=== PATIENT | male | born 1940 | race Caucasian/White ===

== ENCOUNTER → 2016-06-20 14:30 | Outpatient (CLI) | payer MEDICARE, OTHER ==
[2016-03-10 13:56] VITALS: BMI 30.6
[~2016-06-20 14:30] MED LIST: BAYER CHEWABLE81 MG PO; BENADRYL25 MG PO; CYMBALTA60 MG PO; FLAGYL250 MG PO; FLUTICASONE PRO16 GM NASAL; FUROSEMIDE40 MG PO; GLUCOPHAGE1000 MG PO; HYDRALAZINE HC100 MG PO; HYDRALAZINE HCL25 MG PO; HYDROCODONE-APA1 TAB PO; ISOSORBIDE MONO30 M1 PO; ISOSORBIDE MONO60 M1 PO; JANUVIA100 MG PO; JANUVIA50 MG PO; K-TAB10 MEQ PO; LASIX20 MG PO; LEVAQUIN500 MG PO; MIRALAX17 GM PO; NITROSTAT0.4 MG SL; NORVASC10 MG PO; PERSERVISION PO; PLAVIX75 MG PO; PRESERVISION AR1 CAP PO; PREVACID30 MG PO; PROAIR HFA8.5 GM INH; SYMBICORT 16010.2 GM INH; ZESTRIL20 MG PO; ZETIA10 MG PO; ZOFRAN4 MG PO; [UNRECOGNIZED DRUG - REMARK] PO
[2016-06-20 15:28] LABS: BASOPHILS 0.8 % (0.0-2.0); EOSINOPHILS 7.2 % (0-7); HEMATOCRIT 24.4 % (42.0-54.0); HEMOGLOBIN 7.6 g/dL (13.5-17.5); IMMATURE GRANULOCYTES 0.2 % (0-5); LYMPHOCYTES 16.5 % (15-50); MCH 29.3 pg (26.0-34.0); MCHC 31.1 g/dL (31.0-37.0); MCV 94.2 fL (80.0-100.0); MEAN PLATELET VOLUME 10.7 fL (7.4-10.4); MONOCYTES 10.4 % (2-11); NEUTROPHILS 64.9 % (40-80); RBC 2.59 10x6/uL (4.20-6.10); WBC 4.7 10x3/uL (4.8-10.8)
[2016-06-20 15:34] LABS: PLATELET COUNT 342 10x3/uL (130-400)
[2016-06-20 15:36] LABS: ANION GAP 17.3 mmol/L (8-16); CALCIUM 8.5 mg/dL (8.5-10.1); CARBON DIOXIDE 23.6 mmol/L (21.0-32.0); CREATININE - SERUM 5.3 mg/dL (0.6-1.3); POTASSIUM - SERUM 4.9 mmol/L (3.5-5.1)
[2016-06-20 15:45] LABS: HEMOGLOBIN A1C 4.5 % (4.8-6.0)
== END | disposition home or self-care (01) ==
LOC: D.LABREF 14:30
PROVIDERS: Internal Medicine Nephrology
DX: E11.22 Type 2 diabetes mellitus with diabetic chronic kidney disease (principal); N18.9 Chronic kidney disease, unspecified; D64.9 Anemia, unspecified; D69.6 Thrombocytopenia, unspecified

== ENCOUNTER 2016-07-23 08:00 | Outpatient (CLI) | payer MEDICARE, OTHER ==
[2016-03-10 13:56] VITALS: BMI 30.6
[~2016-07-23 08:00] MED LIST changes: -BENADRYL25 MG PO; -FUROSEMIDE40 MG PO; -HYDRALAZINE HC100 MG PO; -ISOSORBIDE MONO60 M1 PO; -JANUVIA100 MG PO; -NITROSTAT0.4 MG SL; -PERSERVISION PO; -PRESERVISION AR1 CAP PO
[2016-07-23 14:35] LABS: BASOPHILS 1.5 % (0.0-2.0); HEMATOCRIT 28.1 % (42.0-54.0); HEMOGLOBIN 8.7 g/dL (13.5-17.5); IMMATURE GRANULOCYTES 0.2 % (0-5); MCH 27.8 pg (26.0-34.0); MCV 89.8 fL (80.0-100.0); MEAN PLATELET VOLUME 9.2 fL (7.4-10.4); MONOCYTES 8.4 % (2-11); NEUTROPHILS 72.9 % (40-80); RBC 3.13 10x6/uL (4.20-6.10); RDW 15.7 % (11.5-14.5); WBC 5.5 10x3/uL (4.8-10.8)
[2016-07-23 14:41] LABS: PLATELET COUNT 178 10x3/uL (130-400)
[2016-07-23 14:58] LABS: APTT 31.7 SECONDS (22.8-39.4); INR 1.26 (0.85-1.17); PROTIME 15.7 SECONDS (11.6-15.0)
[2016-07-23 14:59] LABS: CARBON DIOXIDE 23.6 mmol/L (21.0-32.0); CREATININE - SERUM 5.2 mg/dL (0.6-1.3); POTASSIUM - SERUM 4.6 mmol/L (3.5-5.1)
[2016-07-23] MEDS ORDERED: PRESERVISION AR1 CAP PO (16:26)
[2016-07-23] MEDS ORDERED: PREVACID30 MG PO (16:27)
[2016-07-23] MEDS ORDERED: FUROSEMIDE40 MG PO (16:28)
[2016-07-23] MEDS ORDERED: JANUVIA100 MG PO (16:29)
[2016-07-23] MEDS ORDERED: SYMBICORT 16010.2 GM INH (16:30)
[2016-07-23] MEDS ORDERED: NITROSTAT0.4 MG SL (16:31)
[2016-07-23] MEDS ORDERED: BENADRYL25 MG PO (16:33)
[2016-07-23] MEDS ORDERED: MIRALAX17 GM PO (16:33)
[2016-08-08] MEDS ORDERED: ISOSORBIDE MONO60 M1 PO (07:45)
[2016-08-08] MEDS ORDERED: PERSERVISION PO (07:46)
[2016-08-08] MEDS ORDERED: HYDRALAZINE HC100 MG PO (07:49)
== END 2016-07-23 23:59 | disposition home or self-care (01) ==
LOC: D.PAN 08:00 → D.OPS 07-25 07:30 → EDSTATUS 07-25 07:30
PROVIDERS: Internal Medicine Nephrology
DX: N18.6 End stage renal disease (principal)

== ENCOUNTER → 2016-08-04 15:20 | Outpatient (CLI) | payer MEDICARE, OTHER ==
[2016-03-10 13:56] VITALS: BMI 30.6
[~2016-08-04 15:20] MED LIST changes: +BENADRYL25 MG PO; +FUROSEMIDE40 MG PO; +HYDRALAZINE HC100 MG PO; +ISOSORBIDE MONO60 M1 PO; +JANUVIA100 MG PO; +NITROSTAT0.4 MG SL; +PERSERVISION PO; +PRESERVISION AR1 CAP PO
[2016-08-04 18:40] LABS: BASOPHILS 2.4 % (0.0-2.0); EOSINOPHILS 2.4 % (0-7); HEMATOCRIT 26.3 % (42.0-54.0); HEMOGLOBIN 8.2 g/dL (13.5-17.5); IMMATURE GRANULOCYTES 0.2 % (0-5); LYMPHOCYTES 23.2 % (15-50); MCH 27.5 pg (26.0-34.0); MCHC 31.2 g/dL (31.0-37.0); MCV 88.3 fL (80.0-100.0); MEAN PLATELET VOLUME 10.8 fL (7.4-10.4); MONOCYTES 9.6 % (2-11); NEUTROPHILS 62.2 % (40-80); RBC 2.98 10x6/uL (4.20-6.10); RDW 16.3 % (11.5-14.5); WBC 4.2 10x3/uL (4.8-10.8)
[2016-08-04 18:44] LABS: PLATELET COUNT 227 10x3/uL (130-400)
[2016-08-04 18:59] LABS: CALCIUM 8.4 mg/dL (8.5-10.1); CARBON DIOXIDE 22.1 mmol/L (21.0-32.0); CREATININE - SERUM 5.8 mg/dL (0.6-1.3); POTASSIUM - SERUM 4.1 mmol/L (3.5-5.1)
== END | disposition home or self-care (01) ==
LOC: D.LABREF 15:20
PROVIDERS: Internal Medicine Nephrology
DX: N18.9 Chronic kidney disease, unspecified (principal); E11.9 Type 2 diabetes mellitus without complications; D64.9 Anemia, unspecified

== ENCOUNTER 2016-08-08 09:44 | Day surgery (SDC) | payer MEDICARE, OTHER ==
[2016-08-07 14:14] LABS: BASOPHILS 1.2 % (0.0-2.0); HEMATOCRIT 26.5 % (42.0-54.0); HEMOGLOBIN 8.3 g/dL (13.5-17.5); IMMATURE GRANULOCYTES 0.5 % (0-5); LYMPHOCYTES 17.8 % (15-50); MCH 27.5 pg (26.0-34.0); MCHC 31.3 g/dL (31.0-37.0); MCV 87.7 fL (80.0-100.0); MEAN PLATELET VOLUME 9.9 fL (7.4-10.4); MONOCYTES 10.3 % (2-11); NEUTROPHILS 68.2 % (40-80); PLATELET COUNT 198 10x3/uL (130-400); RBC 3.02 10x6/uL (4.20-6.10); RDW 16.5 % (11.5-14.5); WBC 4.1 10x3/uL (4.8-10.8)
[2016-08-07 14:26] LABS: INR 1.25 (0.85-1.17); PROTIME 15.6 SECONDS (11.6-15.0)
[2016-08-07 14:28] LABS: ANION GAP 16.5 mmol/L (8-16); CALCIUM 8.9 mg/dL (8.5-10.1); CARBON DIOXIDE 23.4 mmol/L (21.0-32.0); CREATININE - SERUM 6.2 mg/dL (0.6-1.3); POTASSIUM - SERUM 4.9 mmol/L (3.5-5.1)
[~2016-08-08] VITALS: Ht 160 cm; Wt 74.8 kg
[2016-08-08 08:06] VITALS: Ht 160 cm; Wt 74.8 kg
--- NOTE | 2016-08-08 13:53 | NUR ---
RETURNED FROM BATHROOM, GAIT BETTER. STATES SHE WANTS HIM TO WAKE UP MORE. STATES "HE'S TOO UNSTEADY." VITAL SIGNS WNL. OXYGEN SAT ON ROOM AIR IS THE SAME PREOP SATURATION. INSTRUCTED ON GIVING HIM HIS HOME MEDICINES THAT HE HAS NOT HAD TODAY USUAL, VOICED UNDERSTANDING. DRESSED AND LAYING IN THE BED.
--- NOTE | 2016-08-08 14:05 | NUR ---
WATCHING TV. STATES FEELS HE WILL BE READY TO LEAVE AT 3. STATES HE WANTS TO REST. INSTRUCTED TO GIVE HIS LASIX THAT HE HAS NOT HAD TODAY WHEN THEY GO HOME, VOICED UNDERSTANDING. INSTRUCTED TO CALL WHEN READY FOR A WHEELCHAIR.
--- NOTE | 2016-08-08 14:31 | NUR ---
SITTING ON SIDE OF BED SMILING. STATES IS READY TO GO HOME. DISCHARGED VIA WC.
--- NOTE | 2016-08-10 07:35 | OP ---
PATIENT NAME: JUSTO BERNAL MEDICAL RECORD: [id number] :38 LOCATION:D.OPS ADMISSION DATE: SURGEON: PAYAL WHITE MD DATE OF OPERATION: 08/08/2016 Outpatient Operative Note PREOPERATIVE DIAGNOSIS: Chronic kidney disease V. POSTOPERATIVE DIAGNOSIS: Chronic kidney disease V. OPERATION PERFORMED: Creation of a left brachiocephalic AV fistula, David type. SURGEON: Payal White MD ANESTHESIA: Regional nerve block and IV sedation per MAINFRAME SYSTEMS ADMINISTRATOR. REFERRING PHYSICIAN: Dr. Marroquin. MAPPING INTERVENTIONALIST: Dr. Salmon. PREOPERATIVE NOTE: Mr. Bernal is a 75-year-old white male patient with chronic kidney disease, who was referred for establishment of dialysis access in anticipation of him requiring dialysis fairly soon. He is brought to the operating room with plans to create a left arm brachiocephalic AV fistula. Under block and IV sedation and monitoring per MAINFRAME SYSTEMS ADMINISTRATOR, the patient is prepped and draped in a sterile manner. He was examined first with a proximal venous tourniquet and with topical nitroglycerin. Ultrasound demonstrated a satisfactory cephalic vein and as anticipated, we went on to create the brachiocephalic fistula. A transverse antecubital incision was made. The vessels were exposed and controlled with Silastic loops. The vein was ligated distally with 2-0 Vicryl. It was flushed with heparinized saline, shortened and beveled and then an atraumatic clamp applied. The artery was opened and flushed with heparinized saline proximally and distally and a veined artery, end-to-side anastomosis was then performed with running 7-0 Prolene. After that was completed, Evicel fibrin glue was applied and then the loops and clamps were released, excellent flow was immediately established in the fistula and the suture line was hemostatic. The wound was irrigated with Ancef and gentamicin solution, it was infiltrated with 0.25% Marcaine without epinephrine. It was closed with interrupted inverted 3-0 Vicryl and running intracuticular 4-0 Monocryl and Dermabond glue, was dressed with Maxorb Ag, Tegaderm and Cavilon skin prep. The patient had several skin tears which had occurred during the prep. These were likewise dressed with Tegaderms. The patient was then taken to the recovery room with good fistula function. PLAN: For the patient to go home from the outpatient department today, continue his home diet and medications. I believe Tylenol should suffice for his pain medication, perhaps with the use of topical ice off and on as needed. I will plan to see him back in my office in 2 weeks and he can leave the original operative dressing intact until that time. There was no blood loss during the procedure. All sponges, instruments and needles were accounted for. No drain OPERATIVE REPORT [id number] JUSTO BERNAL was used and no surgical specimen was submitted for histopathology. TRANSINT:[id number] Voice Confirmation ID: [id number] DOCUMENT ID: [id number] PAYAL WHITE MD at 0735 CC: INA MARROQUIN MD and DOT SALMON MD [id number] DICTATION DATE: 08/08/16 1211 ANTENNA DESIGN ENGINEER: 08/08/16 1856 [facility] 08/08/16 [facility] [address] [place] [address]
== END 2016-08-08 14:31 | disposition home or self-care (01) ==
LOC: D.OPS 09:44
PROVIDERS: Surgery
DX: I13.0 Hypertensive heart and chronic kidney disease with heart failure and stage 1 through stage 4 chronic kidney disease, or unspecified chronic kidney disease (principal); E11.22 Type 2 diabetes mellitus with diabetic chronic kidney disease; N18.4 Chronic kidney disease, stage 4 (severe); I50.9 Heart failure, unspecified; Z99.2 Dependence on renal dialysis; J44.9 Chronic obstructive pulmonary disease, unspecified; Z95.5 Presence of coronary angioplasty implant and graft; K21.9 Gastro-esophageal reflux disease without esophagitis; J45.909 Unspecified asthma, uncomplicated; I25.10 Atherosclerotic heart disease of native coronary artery without angina pectoris; Z87.891 Personal history of nicotine dependence

== ENCOUNTER → 2016-08-29 11:43 | Outpatient (CLI) | payer MEDICARE, OTHER ==
[2016-08-08 08:06] VITALS: BMI 29.2
[2016-08-29 13:46] LABS: BASOPHILS 1.4 % (0-2); EOSINOPHILS 5.2 % (0-7); HEMATOCRIT 26.3 % (42.0-54.0); HEMOGLOBIN 8.3 g/dL (13.5-17.5); IMMATURE GRANULOCYTES 0.2 % (0-5); LYMPHOCYTES 12.4 % (15-50); MCH 27.5 pg (26.0-34.0); MCHC 31.6 g/dL (31.0-37.0); MCV 87.1 fL (80.0-100.0); MEAN PLATELET VOLUME 10.4 fL (7.4-10.4); MONOCYTES 8.3 % (2-11); NEUTROPHILS 72.5 % (40-80); RBC 3.02 10x6/uL (4.20-6.10); RDW 17.1 % (11.5-14.5); WBC 4.8 10x3/uL (4.8-10.8)
[2016-08-29 13:50] LABS: PLATELET COUNT 247 10x3/uL (130-400)
== END | disposition home or self-care (01) ==
LOC: D.LABREF 11:43
PROVIDERS: Legal Medicine
DX: N18.9 Chronic kidney disease, unspecified (principal)

== ENCOUNTER → 2016-09-02 14:18 | Outpatient (CLI) | payer MEDICARE, OTHER ==
[2016-08-08 08:06] VITALS: BMI 29.2
== END | disposition home or self-care (01) ==
LOC: D.RAD 14:18
DX: N18.5 Chronic kidney disease, stage 5 (principal)

== ENCOUNTER → 2016-09-26 17:25 | Outpatient (CLI) | payer MEDICARE, OTHER ==
[2016-08-08 08:06] VITALS: BMI 29.2
[2016-09-26 20:21] LABS: HEMOGLOBIN A1C 4.9 % (4.8-6.0)
== END | disposition home or self-care (01) ==
LOC: D.LABREF 17:25
PROVIDERS: Internal Medicine Nephrology
DX: E11.9 Type 2 diabetes mellitus without complications (principal)

== ENCOUNTER 2016-10-06 11:30 | Outpatient (CLI) | payer MEDICARE, OTHER ==
[~2016-10-06] VITALS: Ht 160 cm; Wt 66.4 kg
[2016-10-06] MEDS ORDERED: ADVAIR 500/501 DISK INH (12:37)
[2016-10-06] MEDS ORDERED: RESTORIL15 MG PO (12:43)
[2016-10-06] MEDS ORDERED: MELATONIN5 MG PO (12:44)
[2016-10-06] MEDS ORDERED: ZOFRAN4 MG PO (12:44)
[2016-10-06] MEDS ORDERED: TUMS500 MG PO (12:45)
[2016-10-06 14:02] VITALS: BP 163/72; Ht 160 cm; Wt 66.4 kg
--- NOTE | 2016-10-06 16:26 | NUR ---
1550 BP ELEVATED, Nya JENNINGS APN NOTIFIED, ORDERS RECEIVED, AWAITING MEDICATION FROM PHARMACY.
--- NOTE | 2016-10-06 17:25 | NUR ---
1700-IV D/C AFTER LINE FLUSHED. 1715-DISCHARGE INSTRUCTIONS REVIEWED WITH PATIENT AND . D/C HOME VIA W/C TO PRIVATE AUTO.
== END 2016-10-06 17:15 | disposition home or self-care (01) ==
LOC: D.OPS 11:30
DX: D64.9 Anemia, unspecified (principal)

== ENCOUNTER → 2016-12-29 12:27 | Outpatient (CLI) | payer MEDICARE, OTHER ==
[2016-10-06 14:02] VITALS: BMI 25.9
[~2016-12-29 12:27] MED LIST changes: +ADVAIR 500/501 DISK INH; +MELATONIN5 MG PO; +RESTORIL15 MG PO; +TUMS500 MG PO
[2016-12-29 13:08] LABS: HEMOGLOBIN A1C 5.7 % (4.8-6.0)
== END | disposition home or self-care (01) ==
LOC: D.LABREF 12:27
PROVIDERS: Legal Medicine
DX: E11.9 Type 2 diabetes mellitus without complications (principal)

== ENCOUNTER 2017-12-25 16:56 | Inpatient (IN) | payer MEDICARE, OTHER ==
[~2017-12-25] VITALS: Ht 160 cm; Wt 77.1 kg
--- NOTE | ~2017-12-25 | EC ---
PATIENT:JUSTO BERNAL DATE OF SERVICE: 12/25/17 SEX: M MEDICAL RECORD: [id number] DATE OF : 38 LOCATION:D.M2 D.210 AGE OF PATIENT: 77 ADMISSION DATE: 12/25/17 REFERRING PHYSICIAN: INTERPRETING PHYSICIAN: ARUNA ELISE MD ECHOCARDIOGRAM REPORT ECHO CHARGES 4 ECHO COMPLETE Date: 12/26 CLINICAL DIAGNOSIS: CARDIOMEGALLY, PERICARDIAL EFFUSION ECHOCARDIOGRAPHIC MEASUREMENTS (adult normal given) AC root (d.<3.7cm) 3.2 cm LV Septum d (<1.2 cm> 1.8 cm Valve Excursion 0.9 cm LV Septum (systole) 1.9 cm Left Atria (s.<4.0cm> 3.2 cm LVPW d(<1.2cm) 1.1 cm RV (d.<2.3cm) 3.4 cm LVPW (sytole) 1.2 cm LV diastole(<5.6CM) 5.3 cm MV E-F(>70mm/sec) cm LV systole 4.6 cm LVOT Diameter 1.6 cm MV exc.(>10mm) cm Est.ejection fraction (50-75%) % DOPPLER: LVIT cm/sec A 78 cm/sec E 113 cm/sec LA cm/sec RVSP 31.7 mmHg LVOT 140 cm/sec AOP1/2T m/s Asc. Ao 204 cm/sec RVOT 76 cm/sec RA cm/sec PA 88 cm/sec AV Gradient Peak 16.7 mmHg AV Mean 8.7 mmHg AV Area 1.7 cm MV Gradient Peak 7.6 mmHg MV Mean 3.3 mmHg MV Area cm COMMENTS: Sewer Bricklayer: Danny ELISE Salvage Engineer: Yudy Elise TAPE# PACS Pericardial Effusion Y DATE OF SERVICE: PROCEDURE: Transthoracic echocardiogram. FINDINGS: 1. Left ventricle shows concentric left ventricular hypertrophy. The ejection fraction is 50% to 55%. There is no obvious regional wall motion abnormalities. 2. The left atrium appears to be normal size. 3. The aortic valve has trace to mild aortic insufficiency, otherwise structurally normal. ECHOCARDIOGRAM REPORT [id number] JUSTO BERNAL 4. The mitral valve has trace to mild mitral regurgitation, it looks structurally normal. 5. The tricuspid valve has mild tricuspid regurgitation. RVSP is 31 mmHg. 6. The right ventricle is mildly dilated with right ventricular hypertrophy. 7. The right atrium is mildly dilated. 8. There is a trace pericardial effusion without tamponade physiology. 9. The pulmonic valve is grossly normal. CONCLUSIONS: The patient has evidence of left ventricular hypertrophy, normal to mildly depressed LV systolic function. TRANSINT:[id number] Voice Confirmation ID: [id number] DOCUMENT ID: [id number] ARUNA ELISE MD at 0749 CC: [id number] DICTATION DATE: 12/27/172222 PIPE TESTING TECHNICIAN: 12/28/17 0523 DIS IN 12/29/17 [facility] [address] [place] [address]
[2017-12-25] MEDS ORDERED: CELEXA10 MG PO (17:27)
[2017-12-25] MEDS ORDERED: NEPHRO-VITE RX1 TAB PO (17:29)
[2017-12-25] MEDS ORDERED: ZOCOR20 MG PO (17:31)
[2017-12-25] MEDS ORDERED: METOPROLOL TART50 MG PO (17:31)
[2017-12-25] MEDS ORDERED: VITAMIN D31000 UNIT PO (17:32)
[2017-12-25 18:16] LABS: BASOPHILS 0.3 % (0-2); EOSINOPHILS 0.5 % (0-7); HEMATOCRIT 36.9 % (42.0-54.0); HEMOGLOBIN 12.6 g/dL (13.5-17.5); IMMATURE GRANULOCYTES 0.2 % (0-5); LYMPHOCYTES 7.1 % (15-50); MCH 30.7 pg (26.0-34.0); MCHC 34.1 g/dL (31.0-37.0); MCV 89.8 fL (80.0-100.0); MEAN PLATELET VOLUME 11.1 fL (7.4-10.4); MONOCYTES 7.2 % (2-11); NEUTROPHILS 84.7 % (40-80); PLATELET COUNT 230 10x3/uL (130-400); RBC 4.11 10x6/uL (4.20-6.10); RDW 17.6 % (11.5-14.5); WBC 9.1 10x3/uL (4.8-10.8)
[2017-12-25 18:32] LABS: ALBUMIN 2.9 g/dL (3.4-5.0); ALKALINE PHOSPHATASE 107 U/L (46-116); ALT (SGPT) 498 U/L (10-68); BILIRUBIN - TOTAL 1.21 mg/dL (0.2-1.3); CALC OSMOLALITY 285 mosm/kg (275-300); CALCIUM 8.6 mg/dL (8.5-10.1); CARBON DIOXIDE 27.6 mmol/L (21.0-32.0); CHLORIDE - SERUM 100 mmol/L (98-107); CREATININE - SERUM 4.9 mg/dL (0.6-1.3); GLUCOSE 103 mg/dL (74-106); POTASSIUM - SERUM 4.2 mmol/L (3.5-5.1); PROTEIN - SERUM 7.1 g/dL (6.4-8.2); SODIUM 137 mmol/L (136-145); UREA NITROGEN 47 mg/dL (7-18); eGFR NON AFRICAN AMERICAN 12 mL/min (90-120)
[2017-12-25 18:56] LABS: AMYLASE - SERUM 19 U/L (25-115); CKMB 5.3 U/L (0.0-3.6); CREATINE KINASE 109 UL (21-232); LIPASE 68 U/L (73-393)
[2017-12-25 19:10] LABS: TROPONIN-I 0.106 ng/mL (0.000-0.060)
[2017-12-25 21:00] VITALS: BP 164/67
[2017-12-25 22:00] VITALS: BP 164/71
[2017-12-25 22:32] LABS: CKMB 2.9 U/L (0.0-3.6); CREATINE KINASE 67 UL (21-232)
[2017-12-25 22:37] LABS: TROPONIN-I 0.088 ng/mL (0.000-0.060)
[2017-12-25 23:00] VITALS: BP 129/64
[2017-12-26 01:12] VITALS: BP 146/70
[2017-12-26 03:11] VITALS: BMI 30.1
[2017-12-26 03:22] LABS: BASOPHILS 0.3 % (0-2); EOSINOPHILS 0.7 % (0-7); HEMATOCRIT 32.5 % (42.0-54.0); HEMOGLOBIN 10.5 g/dL (13.5-17.5); IMMATURE GRANULOCYTES 0.3 % (0-5); LYMPHOCYTES 11.2 % (15-50); MCH 29.6 pg (26.0-34.0); MCHC 32.3 g/dL (31.0-37.0); MCV 91.5 fL (80.0-100.0); MEAN PLATELET VOLUME 10.5 fL (7.4-10.4); MONOCYTES 8.4 % (2-11); NEUTROPHILS 79.1 % (40-80); PLATELET COUNT 180 10x3/uL (130-400); RBC 3.55 10x6/uL (4.20-6.10); RDW 17.7 % (11.5-14.5); WBC 7.1 10x3/uL (4.8-10.8)
[2017-12-26 03:50] LABS: ALBUMIN 2.2 g/dL (3.4-5.0); ALKALINE PHOSPHATASE 82 U/L (46-116); ALT (SGPT) 367 U/L (10-68); BILIRUBIN - TOTAL 0.76 mg/dL (0.2-1.3); CALC OSMOLALITY 294 mosm/kg (275-300); CALCIUM 7.4 mg/dL (8.5-10.1); CARBON DIOXIDE 25.8 mmol/L (21.0-32.0); CHLORIDE - SERUM 104 mmol/L (98-107); CKMB 3.9 U/L (0.0-3.6); CREATINE KINASE 76 UL (21-232); CREATININE - SERUM 5.1 mg/dL (0.6-1.3); GLUCOSE 130 mg/dL (74-106); POTASSIUM - SERUM 4.1 mmol/L (3.5-5.1); PROTEIN - SERUM 5.5 g/dL (6.4-8.2); SODIUM 139 mmol/L (136-145); TROPONIN-I 0.086 ng/mL (0.000-0.060); UREA NITROGEN 55 mg/dL (7-18); eGFR NON AFRICAN AMERICAN 12 mL/min (90-120)
[2017-12-26 05:57] VITALS: BP 154/74
[2017-12-26 08:58] VITALS: BP 162/81
[2017-12-26 10:13] LABS: CKMB 4.3 U/L (0.0-3.6); CREATINE KINASE 87 UL (21-232)
[2017-12-26 10:14] LABS: TROPONIN-I 0.086 ng/mL (0.000-0.060)
[2017-12-26 11:51] VITALS: Ht 160 cm; Wt 77.1 kg
[2017-12-26 19:58] VITALS: BP 150/66
[2017-12-27 00:39] VITALS: BP 159/78
[2017-12-27 05:20] VITALS: BP 157/76
[2017-12-27 06:00] LABS: BASOPHILS 0.2 % (0-2); HEMATOCRIT 34.9 % (42.0-54.0); HEMOGLOBIN 11.2 g/dL (13.5-17.5); IMMATURE GRANULOCYTES 0.2 % (0-5); LYMPHOCYTES 7.6 % (15-50); MCH 29.8 pg (26.0-34.0); MCHC 32.1 g/dL (31.0-37.0); MCV 92.8 fL (80.0-100.0); MEAN PLATELET VOLUME 11.1 fL (7.4-10.4); PLATELET COUNT 195 10x3/uL (130-400); RBC 3.76 10x6/uL (4.20-6.10); RDW 18.3 % (11.5-14.5); WBC 9.3 10x3/uL (4.8-10.8)
[2017-12-27 06:04] LABS: INR 1.82 (0.85-1.17); PROTIME 20.5 SECONDS (11.6-15.0)
[2017-12-27 06:20] LABS: ALBUMIN 2.5 g/dL (3.4-5.0); ANION GAP 13.4 mmol/L (8-16); BILIRUBIN - TOTAL 0.67 mg/dL (0.2-1.3); CALCIUM 8.1 mg/dL (8.5-10.1); CARBON DIOXIDE 27.5 mmol/L (21.0-32.0); CHOL - HDL RATIO 3.4 ratio (2.3-4.9); CREATININE - SERUM 4.8 mg/dL (0.6-1.3); POTASSIUM - SERUM 3.9 mmol/L (3.5-5.1)
[2017-12-27 08:47] VITALS: BP 129/75
[2017-12-27 16:13] VITALS: BP 150/85
[2017-12-27 20:46] VITALS: BP 127/65
[2017-12-28 01:19] VITALS: BP 112/59
[2017-12-28 04:46] LABS: ALBUMIN 2.6 g/dL (3.4-5.0); ANION GAP 15.9 mmol/L (8-16); BILIRUBIN - TOTAL 0.58 mg/dL (0.2-1.3); CALCIUM 7.9 mg/dL (8.5-10.1); CARBON DIOXIDE 27.2 mmol/L (21.0-32.0); CREATININE - SERUM 5.8 mg/dL (0.6-1.3); MAGNESIUM - SERUM 2.1 mg/dL (1.8-2.4); PHOSPHOROUS 6.5 mg/dL (2.5-4.9); POTASSIUM - SERUM 4.1 mmol/L (3.5-5.1); PROTEIN - SERUM 6.4 g/dL (6.4-8.2)
[2017-12-28 05:05] VITALS: BP 153/71
[2017-12-28 05:36] LABS: BASOPHILS 0.1 % (0-2); EOSINOPHILS 0.6 % (0-7); HEMATOCRIT 33.4 % (42.0-54.0); HEMOGLOBIN 10.8 g/dL (13.5-17.5); IMMATURE GRANULOCYTES 0.2 % (0-5); LYMPHOCYTES 8.4 % (15-50); MCH 29.8 pg (26.0-34.0); MCHC 32.3 g/dL (31.0-37.0); MEAN PLATELET VOLUME 9.8 fL (7.4-10.4); MONOCYTES 10.6 % (2-11); NEUTROPHILS 80.1 % (40-80); PLATELET COUNT 160 10x3/uL (130-400); RBC 3.63 10x6/uL (4.20-6.10); RDW 17.9 % (11.5-14.5); WBC 8.7 10x3/uL (4.8-10.8)
[2017-12-28 07:35] VITALS: BP 164/77
[2017-12-28 11:41] VITALS: BP 149/69
[2017-12-28 21:28] VITALS: BP 139/62
[2017-12-29 05:29] VITALS: BP 149/53
[2017-12-29 07:08] LABS: BASOPHILS 0.4 % (0-2); EOSINOPHILS 3.2 % (0-7); HEMATOCRIT 33.8 % (42.0-54.0); HEMOGLOBIN 10.8 g/dL (13.5-17.5); IMMATURE GRANULOCYTES 0.3 % (0-5); LYMPHOCYTES 10.3 % (15-50); MCH 29.9 pg (26.0-34.0); MCV 93.6 fL (80.0-100.0); MEAN PLATELET VOLUME 11.6 fL (7.4-10.4); MONOCYTES 10.1 % (2-11); NEUTROPHILS 75.7 % (40-80); PLATELET COUNT 192 10x3/uL (130-400); RBC 3.61 10x6/uL (4.20-6.10); RDW 18.4 % (11.5-14.5); WBC 7.1 10x3/uL (4.8-10.8)
[2017-12-29 07:10] LABS: ALBUMIN 2.4 g/dL (3.4-5.0); ANION GAP 9.3 mmol/L (8-16); BILIRUBIN - TOTAL 0.54 mg/dL (0.2-1.3); CALCIUM 7.9 mg/dL (8.5-10.1); CARBON DIOXIDE 31.2 mmol/L (21.0-32.0); CREATININE - SERUM 5.1 mg/dL (0.6-1.3); POTASSIUM - SERUM 3.5 mmol/L (3.5-5.1); PROTEIN - SERUM 6.1 g/dL (6.4-8.2)
[2017-12-29] MEDS ORDERED: ISOSORBIDE MONO60 M1 PO (10:03)
[2017-12-29] MEDS ORDERED: MIRALAX17 GM PO (10:04)
[2017-12-29] MEDS ORDERED: PROTONIX40 MG PO (10:04)
[2017-12-29] MEDS ORDERED: CARAFATE1 G/10 ML PO (10:04)
[2017-12-29] MEDS ORDERED: FLORAJEN3 CAPS460 MG PO (10:05)
[2017-12-29] MEDS ORDERED: ROCEPHIN 1 GM/D51 G1 IV (10:06)
[2017-12-29] MEDS ORDERED: FLAGYL500 MG PO (10:06)
[2017-12-29] MEDS ORDERED: ZITHROMAX 500M500 MG IV (10:06)
[2017-12-29 13:06] VITALS: BP 137/68
== END 2017-12-29 19:07 | DRG 686 ==
LOC: D.ER 16:56 → D.EDHOLD 21:29 → D.M2 21:29 → D.MS 21:51 → D.EDHOLD 22:07 → D.M2 23:00
PROVIDERS: Emergency Medicine; Family Medicine; Internal Medicine; Internal Medicine Gastroenterology
DX: C64.9 Malignant neoplasm of unspecified kidney, except renal pelvis (principal); N18.6 End stage renal disease; J18.9 Pneumonia, unspecified organism; I13.2 Hypertensive heart and chronic kidney disease with heart failure and with stage 5 chronic kidney disease, or end stage renal disease; J44.0 Chronic obstructive pulmonary disease with (acute) lower respiratory infection; K57.92 Diverticulitis of intestine, part unspecified, without perforation or abscess without bleeding; E11.22 Type 2 diabetes mellitus with diabetic chronic kidney disease; I50.9 Heart failure, unspecified; K57.90 Diverticulosis of intestine, part unspecified, without perforation or abscess without bleeding; D63.1 Anemia in chronic kidney disease; R74.8 Abnormal levels of other serum enzymes; Z66 Do not resuscitate; K82.4 Cholesterolosis of gallbladder; G72.89 Other specified myopathies; K21.9 Gastro-esophageal reflux disease without esophagitis; I45.10 Unspecified right bundle-branch block; K52.9 Noninfective gastroenteritis and colitis, unspecified; Z86.73 Personal history of transient ischemic attack (TIA), and cerebral infarction without residual deficits

== ENCOUNTER 2017-12-29 17:51 | Inpatient (IN) | payer MEDICARE, OTHER ==
[~2017-12-29] VITALS: Ht 160 cm; Wt 75.5 kg
--- NOTE | ~2017-12-29 | RHP ---
PATIENT: JUSTO BERNAL MEDICAL RECORD: [id number] ACCOUNT: [id number] LOCATION:[id number] : 38 ADMISSION DATE: 12/29/17 REHABILITATION HISTORY AND PHYSICAL EXAMINATION POST ADMISSION PHYSICIAN EXAMINATION DATE OF ADMISSION: 12/29/2017 ADMITTING DIAGNOSIS: Uremic myopathy. HISTORY OF PRESENT ILLNESS: The patient is admitted to the acute inpatient rehabilitation with neurological condition of uremic myopathy. A 77-year-old gentleman with end-stage renal disease, presented to the Emergency Room with constant complaints of nausea, vomiting, and diarrhea. Previously to being presented, he was not feeling well. He had been having the problems for the previous 6 to 7 months, on and off, but this has been pretty consistent for 3 days. He had been following at home, recently gotten weaker, complained of proximal muscle weakness. He missed his hemodialysis on and off the week before secondary to not feeling well and his blood pressure dropping. His GFR is 12. He has some shortness of breath. Chest x-ray showed pneumonia and some lower extremity edema. He did complain of right-sided chest pain. He was placed on telemetry. He is most concerned with his inability to walk without instability. He has also noted some memory changes and inability to find the names of objects. CT showed diverticulosis with some questionable diverticulitis in his abdomen, but his white count was normal. His liver functions were elevated, but this was not a new finding. He does take several Elma a day for hip and back pain. CT of his liver and gallbladder were normal. Amylase and lipase were normal. He was losing weight with nausea and vomiting. He has got history of coronary artery disease, stents and angioplasty, and coronary artery bypass grafting times 4. He also has history of COPD and asthma. He is on 2 liters of oxygen via nasal cannula and also Advair MDI. CT once again also showed some renal cysts and also a moderate pericardial effusion and cardiomegaly. During his acute stay, he was followed by cardiology, gastroenterology and nephrology prior to the onset of his symptoms. He was moderately independent using the cane or walker intermittently, was independent with ADLs. Currently, extremely weak in his lower extremities, has difficulty arising from chair to bed with generalized weakness, proximal greater than distal. He has experienced decreased activity and endurance. The patient is on hemodialysis on Thursday, and Thursday. He also is ambulating with max assist of 40 feet with a rolling walker and gait belt for stability. He is a moderate assist with ADLs and requires speech evaluation to work with his cognition and word finding. He has got a goal of driving again at some point to require intensive therapy to return back to his prior level functioning. Barriers include dialysis telemetry as well as he has got 3 steps that he will need to enter his home. COMORBIDITIES: Include CHF, diabetes, right lower lobe pneumonia, pleural effusion, pulmonary edema, nausea, vomiting, colitis, diverticulitis, elevated troponin, COPD, asthma, coronary artery bypass grafting in the past, acid reflux, history of TIA, pericardial effusion, cardiomegaly and weakness. PAST MEDICAL HISTORY: Significant for TIA, allergies, sinus problems, diabetes, hypertension, stents, angioplasty, coronary artery disease, COPD, asthma, acid reflux, depression, tobacco use, BPH, end-stage renal disease, arthritis and prostate problems. HISTORY AND PHYSICAL [id number] JUSTO BERNAL PAST SURGICAL HISTORY: Includes cataracts, bilateral knee replacement. 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 ALLERGIES: NIACIN. CURRENT MEDICATIONS: Include Januvia 100 mg daily, Protonix 40 mg b.i.d., Flagyl 1000 mg every 6 hours, Lopressor 25 mg daily, Flonase 460 mg daily, folic acid 1 tab daily, Advair 1 puff daily, Flonase nasal spray 2 sprays daily, citalopram 10 mg daily, calcium chews 500 mg t.i.d., Zithromax 250 mg daily, Restoril 15 mg at bedtime p.r.n., Carafate 1 gram before every meal and at bedtime, Zofran 4 mg every 4 hours p.r.n., Nitrostat as needed, isosorbide 60 mg at bedtime, Elma 10/325 one tab every 4 hours p.r.n., Benadryl 25 mg every 6 hours p.r.n. itching, vitamin D 2000 units daily, Rocephin 1 gram every 24 hours, Ocuvite vitamin b.i.d. and MiraLax 17 grams in 8 ounce of water daily. HABITS: No current alcohol or tobacco use. FAMILY HISTORY: Noncontributory. SOCIAL HISTORY: The patient hopes to return back home and get back to his prior level of functioning. REVIEW OF SYSTEMS: GENERAL: He does complain of weakness and fatigue. HEENT: He denies cold, cough, or congestion. CARDIOVASCULAR: Denies chest pain. PHYSICAL EXAMINATION: VITAL SIGNS: Stable, afebrile. GENERAL: A somewhat obese male in no acute distress, alert upon exam. HEENT: Normocephalic and atraumatic, mucosa moist. NECK: Supple. No lymphadenopathy. LUNGS: Clear in upper vaughn. He has decreased breath sounds in the bases. HEART: Regular rate and rhythm. ABDOMEN: Benign. EXTREMITIES: No clubbing, cyanosis or edema. NEUROLOGIC: He does have noted weakness. LABORATORY DATA: White count of 7.2, H&H of 11 and 34 and platelet count is noted to be 171. His sodium is 139, potassium 3.4, BUN and creatinine of 45 and 4.7. Blood sugar is noted to be 85. ASSESSMENT: This 77-year-old gentleman admitted to rehabilitation with the working diagnosis of uremic myopathy. The patient has potential to make improvement. We instituted the following multidisciplinary therapies, including but not limited to physical, occupational, respiratory, speech, nutritional services, prosthetics and orthotics. Given his complex medical condition and risk for more complications, rehabilitation services cannot be provided at a lower level of care such as a skilled nurse facility PLAN: 1. Admit to [facility] services for intensive inpatient therapy to include the following disciplines: A. Physical therapy to improve gait, all transfer skills and bed mobility to a HISTORY AND PHYSICAL [id number] JUSTO BERNAL modified independent level. B. Occupational therapy to improve activities of daily living to a modified independent level C. Case management to assist with discharge planing and placement option. D. Nutrition to assist with nutritional needs. E. Rehabilitation nursing to assist in monitoring the patient's underlying medical conditions and to assist with any type of bowel or bladder management. 2. The patient's current medication and medical care will be continued. 3. The patient will be placed on standard fall precautions. 4. The patient's estimated length of stay is approximately 7 to 10 days. 5. We will discuss this patient during care team staff meeting this week. TRANSINT:[id number] Voice Confirmation ID: [id number] DOCUMENT ID: [id number] APRIL notes whether there has been none or any medical/functional change since admission: - No change since prescreen. APRIL attests patient continues to be appropriate for IRF: - Continues to be appropriate. HOA MOY MD at 1845 CC: [id number] DICTATION DATE: 12/30/17 0857 STAFFING AND SCHEDULING COORDINATOR: 12/30/17 0956 ADM IN [place] [id number] [place] [id number]
[~2017-12-29 17:51] MED LIST changes: +CARAFATE1 G/10 ML PO; +CELEXA10 MG PO; +FLAGYL500 MG PO; +FLORAJEN3 CAPS460 MG PO; +METOPROLOL TART50 MG PO; +NEPHRO-VITE RX1 TAB PO; +PROTONIX40 MG PO; +ROCEPHIN 1 GM/D51 G1 IV; +VITAMIN D31000 UNIT PO; +ZITHROMAX 500M500 MG IV; +ZOCOR20 MG PO
[2017-12-29 18:07] VITALS: BP 165/73
[2017-12-29 19:00] VITALS: BP 165/73
[2017-12-30 05:57] VITALS: BP 122/76
[2017-12-30 06:58] LABS: BASOPHILS 0.8 % (0-2); EOSINOPHILS 3.8 % (0-7); HEMATOCRIT 34.3 % (42.0-54.0); HEMOGLOBIN 10.9 g/dL (13.5-17.5); IMMATURE GRANULOCYTES 0.3 % (0-5); LYMPHOCYTES 10.6 % (15-50); MCHC 31.8 g/dL (31.0-37.0); MCV 94.5 fL (80.0-100.0); MONOCYTES 11.6 % (2-11); NEUTROPHILS 72.9 % (40-80); PLATELET COUNT 171 10x3/uL (130-400); RBC 3.63 10x6/uL (4.20-6.10); RDW 18.6 % (11.5-14.5); WBC 7.2 10x3/uL (4.8-10.8)
[2017-12-30 07:14] LABS: CARBON DIOXIDE 32.4 mmol/L (21.0-32.0); CREATININE - SERUM 4.7 mg/dL (0.6-1.3); POTASSIUM - SERUM 3.4 mmol/L (3.5-5.1)
[2017-12-30 13:26] VITALS: Ht 160 cm; Wt 75.5 kg
[2017-12-30 19:00] VITALS: BP 139/53
[2017-12-31 00:15] VITALS: BP 127/57
[2017-12-31 01:27] VITALS: BP 127/57
[2017-12-31 06:05] VITALS: BP 121/62
[2017-12-31 12:08] VITALS: BP 135/71
[2017-12-31 18:00] VITALS: BP 116/52
[2018-01-01 00:50] VITALS: BP 118/54
[2018-01-01 05:55] VITALS: BP 135/65
[2018-01-01 06:27] LABS: CALCIUM 7.7 mg/dL (8.5-10.1); CARBON DIOXIDE 27.7 mmol/L (21.0-32.0); CREATININE - SERUM 5.3 mg/dL (0.6-1.3); POTASSIUM - SERUM 3.7 mmol/L (3.5-5.1); THYROID STIMULATING HORMONE 3.51 uIU/mL (0.36-3.74)
[2018-01-01 06:31] LABS: BASOPHILS 0.5 % (0-2); HEMATOCRIT 30.3 % (42.0-54.0); HEMOGLOBIN 10.3 g/dL (13.5-17.5); IMMATURE GRANULOCYTES 0.2 % (0-5); MCH 31.3 pg (26.0-34.0); MEAN PLATELET VOLUME 12.2 fL (7.4-10.4); MONOCYTES 16.9 % (2-11); NEUTROPHILS 65.4 % (40-80); PLATELET COUNT 137 10x3/uL (130-400); RBC 3.29 10x6/uL (4.20-6.10)
[2018-01-01 06:34] LABS: MCV 92.1 fL (80.0-100.0)
[2018-01-01 12:11] VITALS: BP 147/51
[2018-01-01 18:00] VITALS: BP 103/58
[2018-01-02 00:05] VITALS: BP 107/61
[2018-01-02 06:00] VITALS: BP 125/76
[2018-01-02 06:49] LABS: BASOPHILS 0.5 % (0-2); EOSINOPHILS 1.6 % (0-7); HEMATOCRIT 31.3 % (42.0-54.0); HEMOGLOBIN 10.1 g/dL (13.5-17.5); IMMATURE GRANULOCYTES 0.4 % (0-5); LYMPHOCYTES 12.5 % (15-50); MCH 29.7 pg (26.0-34.0); MCHC 32.3 g/dL (31.0-37.0); MCV 92.1 fL (80.0-100.0); MONOCYTES 16.2 % (2-11); NEUTROPHILS 68.8 % (40-80); PLATELET COUNT 138 10x3/uL (130-400); RDW 19.2 % (11.5-14.5); WBC 5.5 10x3/uL (4.8-10.8)
[2018-01-02 07:08] LABS: ANION GAP 13.5 mmol/L (8-16); CALCIUM 7.6 mg/dL (8.5-10.1); CARBON DIOXIDE 26.4 mmol/L (21.0-32.0); CREATININE - SERUM 6.3 mg/dL (0.6-1.3); POTASSIUM - SERUM 3.9 mmol/L (3.5-5.1)
[2018-01-02 07:25] VITALS: BP 140/70
[2018-01-02 12:46] VITALS: BP 123/60
[2018-01-02 12:47] VITALS: BP 123/60
[2018-01-02 18:06] VITALS: BP 127/55
[2018-01-03 00:18] VITALS: BP 128/69
[2018-01-03 05:21] VITALS: BP 121/79
[2018-01-03 12:03] VITALS: BP 102/57
[2018-01-03 17:40] VITALS: BP 141/63
[2018-01-04 05:55] VITALS: BP 142/66
[2018-01-04 11:51] VITALS: BP 122/60
[2018-01-04 18:00] VITALS: BP 111/53
[2018-01-05 00:30] VITALS: BP 132/71
[2018-01-05 05:41] VITALS: BP 124/72
[2018-01-05 11:45] VITALS: BP 116/75
[2018-01-05 18:00] VITALS: BP 98/58
[2018-01-05 23:45] VITALS: BP 115/80
[2018-01-06 05:33] VITALS: BP 110/73
[2018-01-06 07:20] LABS: BASOPHILS 0.7 % (0-2); EOSINOPHILS 0.7 % (0-7); HEMATOCRIT 32.3 % (42.0-54.0); HEMOGLOBIN 10.6 g/dL (13.5-17.5); IMMATURE GRANULOCYTES 0.2 % (0-5); LYMPHOCYTES 14.4 % (15-50); MCH 30.1 pg (26.0-34.0); MCHC 32.8 g/dL (31.0-37.0); MCV 91.8 fL (80.0-100.0); MEAN PLATELET VOLUME 11.1 fL (7.4-10.4); RBC 3.52 10x6/uL (4.20-6.10); RDW 19.8 % (11.5-14.5); WBC 5.9 10x3/uL (4.8-10.8)
[2018-01-06 07:24] LABS: PLATELET COUNT 188 10x3/uL (130-400)
[2018-01-06 07:45] LABS: ANION GAP 11.8 mmol/L (8-16); CALCIUM 7.6 mg/dL (8.5-10.1); CARBON DIOXIDE 28.4 mmol/L (21.0-32.0); CREATININE - SERUM 5.4 mg/dL (0.6-1.3); POTASSIUM - SERUM 3.2 mmol/L (3.5-5.1)
[2018-01-06 11:45] VITALS: BP 118/54
[2018-01-06 17:50] VITALS: BP 110/64
[2018-01-06 23:36] VITALS: BP 139/65
[2018-01-07 05:52] VITALS: BP 144/64
[2018-01-07 12:20] VITALS: BP 105/75
[2018-01-07 18:00] VITALS: BP 122/76
[2018-01-08 01:43] VITALS: BP 116/75
[2018-01-08 06:00] VITALS: BP 130/84
[2018-01-08] MEDS ORDERED: HYDROCODONE-APA1 TAB PO (09:01)
== END 2018-01-08 13:24 | disposition home health service (06) | DRG 91 ==
LOC: D.REHAB 17:51
PROVIDERS: Emergency Medicine; Internal Medicine Nephrology
PROC: 5A1D70Z Performance of Urinary Filtration, Intermittent, Less than 6 Hours Per Day (ICD-10-PCS; principal; 2017-12-31)
DX: G72.89 Other specified myopathies (principal); N18.6 End stage renal disease; J18.9 Pneumonia, unspecified organism; I13.2 Hypertensive heart and chronic kidney disease with heart failure and with stage 5 chronic kidney disease, or end stage renal disease; J90 Pleural effusion, not elsewhere classified; J81.1 Chronic pulmonary edema; K57.92 Diverticulitis of intestine, part unspecified, without perforation or abscess without bleeding; I31.3 Pericardial effusion (noninflammatory); I50.20 Unspecified systolic (congestive) heart failure; E11.22 Type 2 diabetes mellitus with diabetic chronic kidney disease; Z99.2 Dependence on renal dialysis; J44.9 Chronic obstructive pulmonary disease, unspecified; Z95.1 Presence of aortocoronary bypass graft; K21.9 Gastro-esophageal reflux disease without esophagitis; R11.2 Nausea with vomiting, unspecified; K52.9 Noninfective gastroenteritis and colitis, unspecified; I51.7 Cardiomegaly; R53.1 Weakness

== ENCOUNTER 2018-01-12 11:11 | Inpatient (IN) | payer MEDICARE, OTHER ==
[~2018-01-12] VITALS: Ht 160 cm; Wt 77.1 kg
[2018-01-12 11:15] VITALS: BP 150/82
[2018-01-12] MEDS ORDERED: LASIX80 MG PO (11:17)
[2018-01-12] MEDS ORDERED: HYDROCODONE-APA1 TAB PO (11:18)
[2018-01-12] MEDS ORDERED: PREVACID30 MG PO (11:21)
[2018-01-12] MEDS ORDERED: ZOCOR20 MG PO (11:23)
[2018-01-12] MEDS ORDERED: IMODIUM2 MG PO (11:26)
[2018-01-12 11:40] LABS: BASOPHILS 0.4 % (0-2); EOSINOPHILS 0.4 % (0-7); HEMATOCRIT 34.3 % (42.0-54.0); HEMOGLOBIN 11.6 g/dL (13.5-17.5); IMMATURE GRANULOCYTES 0.1 % (0-5); LYMPHOCYTES 5.8 % (15-50); MCH 31.3 pg (26.0-34.0); MCHC 33.8 g/dL (31.0-37.0); MCV 92.5 fL (80.0-100.0); MEAN PLATELET VOLUME 10.1 fL (7.4-10.4); MONOCYTES 9.7 % (2-11); NEUTROPHILS 83.6 % (40-80); PLATELET COUNT 222 10x3/uL (130-400); RBC 3.71 10x6/uL (4.20-6.10); RDW 21.6 % (11.5-14.5); WBC 7.5 10x3/uL (4.8-10.8)
[2018-01-12 12:00] VITALS: BP 165/82
[2018-01-12 12:10] LABS: BILIRUBIN - TOTAL 1.09 mg/dL (0.2-1.3); CALCIUM 8.7 mg/dL (8.5-10.1); CREATININE - SERUM 10.1 mg/dL (0.6-1.3); PROTEIN - SERUM 6.7 g/dL (6.4-8.2)
[2018-01-12 13:00] VITALS: BP 166/84
[2018-01-12 14:00] VITALS: BP 156/84
[2018-01-12 15:00] VITALS: BP 153/73
[2018-01-12 21:20] VITALS: BP 137/91
[2018-01-13] VITALS (7 sets, daily range): BP systolic 107–142; BP diastolic 72–96; Ht 160 cm; Wt 77.1 kg
[2018-01-13 06:40] LABS: BASOPHILS 0.5 % (0-2); EOSINOPHILS 0.8 % (0-7); HEMATOCRIT 35.6 % (42.0-54.0); IMMATURE GRANULOCYTES 0.2 % (0-5); MCH 31.3 pg (26.0-34.0); MCHC 33.7 g/dL (31.0-37.0); MEAN PLATELET VOLUME 11.2 fL (7.4-10.4); MONOCYTES 9.3 % (2-11); NEUTROPHILS 80.2 % (40-80); PLATELET COUNT 237 10x3/uL (130-400); RBC 3.83 10x6/uL (4.20-6.10); RDW 22.1 % (11.5-14.5); WBC 6.5 10x3/uL (4.8-10.8)
[2018-01-13 06:46] LABS: ALBUMIN 2.8 g/dL (3.4-5.0); BILIRUBIN - TOTAL 1.06 mg/dL (0.2-1.3); CALCIUM 8.4 mg/dL (8.5-10.1); CREATININE - SERUM 8.2 mg/dL (0.6-1.3); PHOSPHOROUS 8.2 mg/dL (2.5-4.9); POTASSIUM - SERUM 4.3 mmol/L (3.5-5.1); PROTEIN - SERUM 6.5 g/dL (6.4-8.2)
[2018-01-13 06:54] LABS: CARBON DIOXIDE 23.3 mmol/L (21.0-32.0)
[2018-01-13 10:51] LABS: T4 THYROXINE 7.4 ug/dL (4.7-13.3); THYROID STIMULATING HORMONE 4.13 uIU/mL (0.36-3.74)
[2018-01-14 04:00] VITALS: BP 137/71
[2018-01-14 05:08] LABS: BASOPHILS 0.4 % (0-2); EOSINOPHILS 0.8 % (0-7); HEMATOCRIT 37.5 % (42.0-54.0); HEMOGLOBIN 12.6 g/dL (13.5-17.5); IMMATURE GRANULOCYTES 0.3 % (0-5); MCH 31.2 pg (26.0-34.0); MCHC 33.6 g/dL (31.0-37.0); MCV 92.8 fL (80.0-100.0); MEAN PLATELET VOLUME 10.6 fL (7.4-10.4); MONOCYTES 13.8 % (2-11); NEUTROPHILS 75.7 % (40-80); PLATELET COUNT 233 10x3/uL (130-400); RBC 4.04 10x6/uL (4.20-6.10); RDW 22.1 % (11.5-14.5); WBC 7.2 10x3/uL (4.8-10.8)
[2018-01-14 05:37] LABS: ANION GAP 20.4 mmol/L (8-16); CALCIUM 8.4 mg/dL (8.5-10.1); CARBON DIOXIDE 23.9 mmol/L (21.0-32.0); CREATININE - SERUM 9.5 mg/dL (0.6-1.3); MAGNESIUM - SERUM 2.6 mg/dL (1.8-2.4); POTASSIUM - SERUM 4.3 mmol/L (3.5-5.1)
[2018-01-14 06:16] LABS: PHOSPHOROUS 9.5 mg/dL (2.5-4.9)
[2018-01-14 07:34] VITALS: BP 152/73
[2018-01-14 17:36] VITALS: BP 104/65
[2018-01-14 21:16] VITALS: BP 138/65
[2018-01-15 05:52] VITALS: BP 147/92
[2018-01-15 06:19] LABS: BASOPHILS 0.4 % (0-2); EOSINOPHILS 1.8 % (0-7); HEMATOCRIT 36.9 % (42.0-54.0); HEMOGLOBIN 12.4 g/dL (13.5-17.5); IMMATURE GRANULOCYTES 0.4 % (0-5); LYMPHOCYTES 10.3 % (15-50); MCH 31.2 pg (26.0-34.0); MCHC 33.6 g/dL (31.0-37.0); MCV 92.7 fL (80.0-100.0); MEAN PLATELET VOLUME 10.9 fL (7.4-10.4); MONOCYTES 13.1 % (2-11); PLATELET COUNT 206 10x3/uL (130-400); RBC 3.98 10x6/uL (4.20-6.10); RDW 22.3 % (11.5-14.5); WBC 5.7 10x3/uL (4.8-10.8)
[2018-01-15 06:30] LABS: ANION GAP 15.8 mmol/L (8-16); CALCIUM 8.3 mg/dL (8.5-10.1); CREATININE - SERUM 7.4 mg/dL (0.6-1.3); PHOSPHOROUS 7.9 mg/dL (2.5-4.9); POTASSIUM - SERUM 3.8 mmol/L (3.5-5.1)
[2018-01-15 07:48] VITALS: BP 131/51
[2018-01-15 11:49] VITALS: BP 113/71
[2018-01-15 17:13] VITALS: BP 123/60
[2018-01-15 20:00] VITALS: BP 125/82
[2018-01-16] VITALS: BP 140/90
[2018-01-16 04:00] VITALS: BP 133/83
[2018-01-16 05:45] LABS: BASOPHILS 0.4 % (0-2); EOSINOPHILS 1.6 % (0-7); HEMATOCRIT 34.8 % (42.0-54.0); HEMOGLOBIN 11.8 g/dL (13.5-17.5); IMMATURE GRANULOCYTES 0.4 % (0-5); LYMPHOCYTES 10.1 % (15-50); MCH 31.4 pg (26.0-34.0); MCHC 33.9 g/dL (31.0-37.0); MCV 92.6 fL (80.0-100.0); MEAN PLATELET VOLUME 10.6 fL (7.4-10.4); MONOCYTES 12.5 % (2-11); PLATELET COUNT 209 10x3/uL (130-400); RBC 3.76 10x6/uL (4.20-6.10); WBC 6.8 10x3/uL (4.8-10.8)
[2018-01-16 06:13] LABS: ANION GAP 20.2 mmol/L (8-16); CALCIUM 8.1 mg/dL (8.5-10.1); CARBON DIOXIDE 24.1 mmol/L (21.0-32.0); CREATININE - SERUM 8.4 mg/dL (0.6-1.3); PHOSPHOROUS 8.7 mg/dL (2.5-4.9); POTASSIUM - SERUM 4.3 mmol/L (3.5-5.1)
[2018-01-16 09:35] VITALS: BP 128/69
[2018-01-16 15:34] VITALS: BP 116/67
[2018-01-16 20:00] VITALS: BP 113/75
[2018-01-17 04:00] VITALS: BP 112/60
[2018-01-17 06:47] LABS: BASOPHILS 0.3 % (0-2); EOSINOPHILS 1.3 % (0-7); HEMATOCRIT 36.8 % (42.0-54.0); IMMATURE GRANULOCYTES 0.3 % (0-5); LYMPHOCYTES 12.1 % (15-50); MCH 30.8 pg (26.0-34.0); MCHC 32.6 g/dL (31.0-37.0); MEAN PLATELET VOLUME 10.7 fL (7.4-10.4); MONOCYTES 11.3 % (2-11); NEUTROPHILS 74.7 % (40-80); PLATELET COUNT 212 10x3/uL (130-400); RBC 3.89 10x6/uL (4.20-6.10); RDW 22.6 % (11.5-14.5); WBC 5.9 10x3/uL (4.8-10.8)
[2018-01-17 06:49] LABS: MCV 94.6 fL (80.0-100.0)
[2018-01-17 07:08] LABS: ANION GAP 20.6 mmol/L (8-16); CARBON DIOXIDE 25.4 mmol/L (21.0-32.0); PHOSPHOROUS 7.1 mg/dL (2.5-4.9)
[2018-01-17 07:14] LABS: CREATININE - SERUM 6.2 mg/dL (0.6-1.3)
[2018-01-17 08:58] VITALS: BP 129/66
[2018-01-17] MEDS ORDERED: PACERONE400 MG PO (10:14)
[2018-01-17] MEDS ORDERED: LOPRESSOR25 MG PO (10:14)
[2018-01-17 11:37] VITALS: BP 112/56
== END 2018-01-17 18:16 | DRG 640 ==
LOC: D.ER 11:11 → D.EDHOLD 13:09 → D.M2 13:09
PROVIDERS: Family Medicine; Internal Medicine Nephrology
PROC: 5A1D70Z Performance of Urinary Filtration, Intermittent, Less than 6 Hours Per Day (ICD-10-PCS; principal; 2018-01-12)
DX: E87.70 Fluid overload, unspecified (principal); N18.6 End stage renal disease; I12.0 Hypertensive chronic kidney disease with stage 5 chronic kidney disease or end stage renal disease; E87.5 Hyperkalemia; E11.22 Type 2 diabetes mellitus with diabetic chronic kidney disease; Z99.2 Dependence on renal dialysis; Z91.15 Patient's noncompliance with renal dialysis; J44.9 Chronic obstructive pulmonary disease, unspecified; E78.5 Hyperlipidemia, unspecified; I48.91 Unspecified atrial fibrillation; D63.1 Anemia in chronic kidney disease; K21.9 Gastro-esophageal reflux disease without esophagitis; Z87.891 Personal history of nicotine dependence; E87.1 Hypo-osmolality and hyponatremia

== ENCOUNTER 2018-02-23 16:59 | Emergency (ER) | payer MEDICARE ==
[~2018-02-23] VITALS: Ht 160 cm; Wt 75.0 kg
[~2018-02-23 16:59] MED LIST changes: +IMODIUM2 MG PO; +LASIX80 MG PO; +LOPRESSOR25 MG PO; +PACERONE400 MG PO
[2018-02-23 17:01] VITALS: Ht 160 cm; Wt 75.0 kg
[2018-02-23] MEDS ORDERED: NEPHRO-VITE RX1 TAB PO (17:15)
[2018-02-23] MEDS ORDERED: MIRALAX17 GM PO (17:15)
[2018-02-23] MEDS ORDERED: TUMS X-STR300 MG PO (17:16)
[2018-02-23 18:05] LABS: BASOPHILS 0.5 % (0-2); EOSINOPHILS 1.2 % (0-7); HEMATOCRIT 33.6 % (42.0-54.0); IMMATURE GRANULOCYTES 0.3 % (0-5); LYMPHOCYTES 5.9 % (15-50); MCH 31.7 pg (26.0-34.0); MCHC 32.7 g/dL (31.0-37.0); MCV 96.8 fL (80.0-100.0); MEAN PLATELET VOLUME 10.4 fL (7.4-10.4); MONOCYTES 9.3 % (2-11); NEUTROPHILS 82.8 % (40-80); RBC 3.47 10x6/uL (4.20-6.10); RDW 17.8 % (11.5-14.5); WBC 6.5 10x3/uL (4.8-10.8)
[2018-02-23 18:17] LABS: APTT 32.6 SECONDS (22.8-39.4); INR 1.41 (0.85-1.17); PROTIME 16.7 SECONDS (11.6-15.0)
[2018-02-23 18:26] LABS: ALBUMIN 3.1 g/dL (3.4-5.0); ALKALINE PHOSPHATASE 90 U/L (46-116); ALT (SGPT) 17 U/L (10-68); BILIRUBIN - TOTAL 0.84 mg/dL (0.2-1.3); CALC OSMOLALITY 276 mosm/kg (275-300); CALCIUM 8.4 mg/dL (8.5-10.1); CARBON DIOXIDE 27.7 mmol/L (21.0-32.0); CHLORIDE - SERUM 99 mmol/L (98-107); CREATININE - SERUM 3.5 mg/dL (0.6-1.3); GLUCOSE 95 mg/dL (74-106); POTASSIUM - SERUM 3.3 mmol/L (3.5-5.1); PROTEIN - SERUM 6.8 g/dL (6.4-8.2); SODIUM 137 mmol/L (136-145); UREA NITROGEN 21 mg/dL (7-18); eGFR NON AFRICAN AMERICAN 18 mL/min (90-120)
[2018-02-23 18:27] LABS: PLATELET COUNT 150 10x3/uL (130-400)
[2018-02-23 18:41] LABS: CKMB 2.3 U/L (0.0-3.6); CREATINE KINASE 45 UL (21-232); MAGNESIUM - SERUM 1.9 mg/dL (1.8-2.4); THYROID STIMULATING HORMONE 11.39 uIU/mL (0.36-3.74); TROPONIN-I 0.042 ng/mL (0.000-0.060)
[2018-02-23 20:14] VITALS: BP 169/80
== END 2018-02-23 20:15 | disposition other institution (70) ==
LOC: D.ER 16:59
PROVIDERS: Emergency Medicine
DX: S06.6X9A Traumatic subarachnoid hemorrhage with loss of consciousness of unspecified duration, initial encounter (principal); J44.9 Chronic obstructive pulmonary disease, unspecified; I12.9 Hypertensive chronic kidney disease with stage 1 through stage 4 chronic kidney disease, or unspecified chronic kidney disease; N18.9 Chronic kidney disease, unspecified; Z99.2 Dependence on renal dialysis; S02.119A Unspecified fracture of occiput, initial encounter for closed fracture; W18.30XA Fall on same level, unspecified, initial encounter; Y93.89 Activity, other specified; Y92.019 Unspecified place in single-family (private) house as the place of occurrence of the external cause; J18.9 Pneumonia, unspecified organism; E11.9 Type 2 diabetes mellitus without complications; Z86.73 Personal history of transient ischemic attack (TIA), and cerebral infarction without residual deficits